=== PATIENT | female | born 2000 | race Caucasian/White ===

== ENCOUNTER 2024-07-28 13:55 | Inpatient (IN) ==
[2024-07-28] MEDS: LACTATED RINGER'S 1,000 ML IV ONE (15:00)
[2024-07-28] MEDS ORDERED: LIDOCAINE 1% LOCAL 20 ML VIAL INFIL PRN (16:37)
[2024-07-28] MEDS ORDERED: ACETAMINOPHEN 325 MG TAB PO PRN (16:37)
[2024-07-28] MEDS ORDERED: CALCIUM CARBONATE 500 MG CHEWABLE TAB PO PRN (16:37)
[2024-07-28] MEDS: BETAMETH SOD PHOS/ACETATE IA 6 MG/ML IM STA (16:49)
--- NOTE | 2024-07-28 17:03 | History & Physical Report ---
Date of Service July 28, 2024 Assessment & Plan (1) Supervision of normal first : Plan: IUP at 36 0/7 weeks in active labor- she made good cervical mold insert changer 2 hours (3/50/-2 to 4-5/100/-1) GBS obtained but willl start PCN prophylaxis diet controlled GDM - check glucose Q2H will also give dose of Celestone now because of late gestation she is not too painful yet- may consider epidural analgesia at some point anticipate vaginal History of Present Illness Primary Care Provider: Xiomara Painting MD Patient is a 23yo female EDC 08/25/24 who presents at 36 0/7 weeks with regular ctns since 10am. had increased slippery discharge for the past several days. started having pink discharge when she started to contract. complicated by diet controlled GDM. testing has been reassuring. last growth scan at 34 weeks showed EFW 98%tile. GBS status unknown. Allergies Allergy/AdvReac Type Severity Reaction Status Date / Time animal dander Allergy Intermediate Hives Verified 07/28/24 14:16 house dust Allergy Intermediate skin test Verified 07/28/24 14:16 positive pollen extracts Allergy Intermediate sinus Verified 07/28/24 14:16 congestion lactose AdvReac Intermediate lactose Verified 07/28/24 14:16 intolerant wheat Allergy Intermediate Celiac Uncoded 07/28/24 14:16 Disease Home Medications Medication Instructions Recorded Confirmed Type Aerochamber MV (inhalational #1 ea 09/04/19 07/16/24 Rx spacing device) albuterol sulfate 90 mcg/actuation 2 puffs inhalation Q6H PRN asthma 03/01/21 07/28/24 History aerosol inhaler attack venlafaxine 75 mg capsule,extended 75 mg PO QAM 03/01/21 07/28/24 History release 24 hr hydroxyzine HCl 10 mg tablet 10 mg PO DAILY PRN Anxiety #30 tabs 07/16/22 07/28/24 Rx 21-iron fu-folic acid 1 tab PO DAILY 02/05/24 07/28/24 History [ Complete] acetone (urine) test (Ketone Urine #50 ea 07/10/24 07/16/24 Rx Test strips) blood sugar diagnostic (OneTouch #150 ea 07/10/24 07/16/24 Rx Verio test strips) blood-glucose meter (OneTouch #1 ea 07/10/24 07/16/24 Rx Verio Reflect Meter) lancets 33 gauge (OneTouch Delica #150 ea 07/10/24 07/16/24 Rx Plus Lancet) Patient History Medical History Varicella vaccination Hyperlipidemia Celiac disease Pilonidal disease Allergic rhinitis Anxiety Exercise-induced asthma Loss of weight Underweight Asthma Celiac disease in pediatric patient Surgical History S/P surgical removal of pilonidal cyst (03/03/21) History of esophagogastroduodenoscopy (EGD) Family History Father No significant family history Mother Sinusitis Grandfather Type 1 diabetes mellitus Hyperlipidemia Grandmother Asthma Hypertension Allergies Cancer Brother Allergies Sister Allergies Aunt Myocardial infarction Denies family history of Ovarian cancer Prostate cancer Breast cancer Colorectal cancer Social History Smoking Status: Never smoker Second Hand Exposure: No; Do You Dip or Chew Tobacco: No; Hx Alcohol Use: No Hx Substance Use: No Preferred Language: Yakut Communication Ability: Effective Clinical Psychologist Licensed Required: No Beliefs That Will Affect Care: None marital status: Single marital status details: min Navarro(22) [phone] Current Living Situation: Family Current Living Situation Comment: Patient lives with parents and 2 sisters, no pets current occupational status: employed 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 other: 6- SISTERS, 1- BROTHER Feels Safe at Home: Yes Safety Concerns: Feels Safe At This Time Childhood Exposure to Second-Hand Smoke: No Diet Comment: Celiac Dental Care, Regularly: Yes Physical Activity Frequency: 3-4 Times per Week Seatbelt Use: always Sunscreen Use: Yes Do you think of yourself as: straight/heterosexual Assistive Devices: None Review of Systems All systems reviewed & are unremarkable except as noted in HPI & below Physical Exam Constitutional: WD/WN, vitals as above Psychiatric: A+Ox3, euthymic affect Genitourinary: Manual OB Exam: + cervical dilation (4-5 cm), + cervical effacement 100% and + station -1 bulging membranes on exam Results & Data Vital Signs (Past 12 Hours) Vital Signs Temp Pulse Resp BP 07/28/24 15:10 98.6 F 118 H 20 136/90 07/28/24 14:26 118 H 07/28/24 14:26 136/90 07/28/24 14:10 118 H 133/92 Code Status & VTE Plan VTE Prophylaxis Plan VTE Prophylaxis will be ordered: No Coding Level of Care Code 40319 INT INP/OBS CARE MIN Diagnoses Encounter for supervision of normal first in third trimester Z34.03 Trimester: third trimester (1) Supervision of normal first Trimester: third trimester Qualified Code(s): Z34.03 - Encounter for supervision of normal first , third trimester
[2024-07-28 17:10] LABS: Hematocrit (blood only) 32.2 % (37.0-47.0); Hemoglobin 10.3 g/dl (12.0-16.0); Mean Corpuscular Hemoglobin 23.1 pg (25.0-34.0); Mean Corpuscular Volume 72.2 fL (80.0-100.0); Mean Platelet Volume 10.4 fL (9.4-12.4); Platelet Count 252 K/uL (130-400); RDW Coefficient of Variation 14.7 % (11.5-14.5); RDW Standard Deviation 38.3 fL (36.4-46.3); Red Blood Count 4.46 M/uL (4.20-5.40); White Blood Count 15.15 K/ul (4.8-10.8)
[2024-07-28] MEDS: PENICILLIN GK 6 MU in DEXTROSE 5% 250 ML IV STA (17:28)
[2024-07-28] MEDS: LACTATED RINGER'S 1,000 ML IV PRN (17:40)
[2024-07-28] MEDS: PENICILLIN GK 3 MU in DEXTROSE 5% 100 ML IV PRN (20:36)
[2024-07-28] MEDS ORDERED: OXYTOCIN 30 UNITS/NSS 30 UNITS/500 ML BAG IV PRN (22:00)
--- NOTE | 2024-07-28 22:00 | Labor Progress Brief Note ---
Date of Service July 28, 2024 Subjective Reason For Note: Routine Evaluation contractions lasting longer but not more painful FHT's Category 1- ctns [id number] 2nd dose of PCN now finished cervix exam: 5cm/100/-1 AROM for clear fluid may need pitocin for augmentation Review of Systems All systems reviewed & are unremarkable except as noted in HPI & below Assessment & Plan Admission and Anticipated Discharge Date Admission Date: July 28, 2024 Results & Data Vital Signs (Past 12 Hours) Vital Signs Temp Pulse Resp BP 07/28/24 21:54 139 H 07/28/24 21:54 139/87 07/28/24 19:29 16 07/28/24 19:29 97.9 F 16 07/28/24 19:06 116 H 07/28/24 19:06 139/94 07/28/24 17:48 111 H 07/28/24 17:48 139/88 07/28/24 17:32 112 H 07/28/24 17:32 143/99 H 07/28/24 15:10 98.6 F 118 H 20 136/90 07/28/24 14:26 118 H 07/28/24 14:26 136/90 07/28/24 14:10 98.6 F 118 H 20 133/92 Coding Level of Care Code 00126 SUB INP/OBS CARE 05/16MIN
[2024-07-28] MEDS: BUPIVACAINE 0.25% PF 30 ML VIAL ONE (23:10)
[2024-07-28] MEDS: LIDOCAINE 2%/EPINEPHRINE 1:200,000 20 ML PF ONE (23:21)
--- NOTE | 2024-07-28 23:23 | Anesthesiology Consultation ---
Date of Service July 28, 2024 Assessment & Plan Chart Review Chart Review: Acceptable Risk for Labor Epidural Consults Requested none History Height/Weight Height: 5 ft 6 in Weight: 61.689 kg Allergies Allergy/AdvReac Type Severity Reaction Status Date / Time animal dander Allergy Intermediate Hives Verified 07/28/24 14:16 house dust Allergy Intermediate skin test Verified 07/28/24 14:16 positive pollen extracts Allergy Intermediate sinus Verified 07/28/24 14:16 congestion lactose AdvReac Intermediate lactose Verified 07/28/24 14:16 intolerant wheat Allergy Intermediate Celiac Uncoded 07/28/24 14:16 Disease Medications Home Medications Medication Instructions Recorded Confirmed Last Taken Aerochamber MV (inhalational #1 ea 09/04/19 07/16/24 Unknown spacing device) albuterol sulfate 90 mcg/actuation 2 puffs inhalation Q6H PRN asthma 03/01/21 07/28/24 Unknown aerosol inhaler attack venlafaxine 75 mg capsule,extended 75 mg PO QAM 03/01/21 07/28/24 07/28/24 08:00 release 24 hr hydroxyzine HCl 10 mg tablet 10 mg PO DAILY PRN Anxiety #30 tabs 07/16/22 07/28/24 06/24/24 19:00 21-iron fu-folic acid 1 tab PO DAILY 02/05/24 07/28/24 07/08/24 [ Complete] acetone (urine) test (Ketone Urine #50 ea 07/10/24 07/16/24 Unknown Test strips) blood sugar diagnostic (OneTouch #150 ea 07/10/24 07/16/24 Unknown Verio test strips) blood-glucose meter (OneTouch #1 ea 07/10/24 07/16/24 Unknown Verio Reflect Meter) lancets 33 gauge (OneTouch Delica #150 ea 07/10/24 07/16/24 Unknown Plus Lancet) Active Medications Generic Name Dose Route Start Last Admin Trade Name Freq PRN Reason Stop Dose Admin Penicillin G Potassium 3 mu/ 106 mls @ 100 mls/hr 07/28/24 19:37 07/28/24 21:40 Dextrose IV 08/07/24 19:36 Infused Q4H PRN Infusion GBS(+) Until Delivery Lactated Ringer's 1,000 mls @ 125 mls/hr 07/28/24 16:37 07/28/24 23:19 Lr IV 07/29/24 16:36 125 mls/hr .Q8H PRN Infusion L&D Protocol Protocol Past Medical History Medical History Varicella vaccination Hyperlipidemia Celiac disease Pilonidal disease Allergic rhinitis Anxiety Exercise-induced asthma Loss of weight Underweight Asthma Celiac disease in pediatric patient Past Family History Family History Father No significant family history Mother Sinusitis Grandfather Type 1 diabetes mellitus Hyperlipidemia Grandmother Asthma Hypertension Allergies Cancer Brother Allergies Sister Allergies Aunt Myocardial infarction Denies family history of Ovarian cancer Prostate cancer Breast cancer Colorectal cancer Past Surgical History Surgical History S/P surgical removal of pilonidal cyst (03/03/21) History of esophagogastroduodenoscopy (EGD) Social History Smoking Status: Never smoker Do You Dip or Chew Tobacco: No Hx Alcohol Use: No Hx Substance Use: No substance use type: does not use Physical Exam Vital Signs Last Vital Signs Temp 36.5 C 07/28/24 22:00 Pulse 131 H 07/28/24 23:22 Resp 16 07/28/24 22:00 BP 134/77 07/28/24 23:22 Pulse Ox 100 07/28/24 23:21 Testing Laboratory Results 07/28/24 16:55 07/28/24 07/28/24 07/28/24 21:58 19:17 17:08 POC Glucose 109 H 91 89
[2024-07-28] MEDS ORDERED: NALOXONE HCL 1 MG in SODIUM CHLORIDE 0.9% 1,000 ML IV PRN ×2 (23:27→23:37)
[2024-07-28] MEDS ORDERED: diphenhydrAMINE 50 MG/ML VIAL IV PRN ×2 (23:27→23:37)
[2024-07-28] MEDS ORDERED: NALOXONE HCL 0.4 MG/1 ML VIAL/CARP IV PRN ×2 (23:27→23:37)
[2024-07-28] MEDS ORDERED: ePHEDrine sulfate 50 MG/ML AMP IV PRN ×2 (23:27→23:37)
[2024-07-28] MEDS ORDERED: BUPIVACAINE 0.25% PF 30 ML VIAL EPI PRN ×2 (23:27→23:37)
[2024-07-28] MEDS ORDERED: fentaNYL citrate PF 100 MCG/2 ML VIAL EPI PRN ×2 (23:27→23:37)
[2024-07-28] MEDS ORDERED: fentANYL 2 MCG/ML BUPIVacaine 0.125%-NSS 100ML BAG EPI PRN ×2 (23:27→23:37)
[2024-07-28] MEDS ORDERED: NALBUPHINE HCL INJ 10 MG/ML AMP IV PRN ×2 (23:27→23:37)
[2024-07-28] MEDS ORDERED: LIDOCAINE 2% MPF LOCAL 5 ML VIAL EPI PRN ×2 (23:27→23:37)
[2024-07-28] MEDS ORDERED: ROPIVACAINE 0.5% PF 5 MG/ML 20 ML VIAL EPI PRN ×2 (23:27→23:37)
[2024-07-28] MEDS ORDERED: SODIUM CHLORIDE 0.9% PF INJ 10 ML VIAL EPI PRN ×2 (23:27→23:37)
[2024-07-28] MEDS: fentaNYL citrate PF 100 MCG/2 ML VIAL ONE (23:30)
[2024-07-28] MEDS: fentANYL 2 MCG/ML BUPIVacaine 0.125%-NSS 100ML BAG ONE (23:40)
[2024-07-29] MEDS: BUPIVACAINE 0.25% PF 30 ML VIAL EPI STA ×2 (01:13→01:15)
[2024-07-29] MEDS: SODIUM CHLORIDE 0.9% PF INJ 10 ML VIAL ONE (01:13)
[2024-07-29] MEDS: ePHEDrine sulfate 50 MG/ML AMP ONE (01:13)
[2024-07-29] MEDS: SODIUM CHLORIDE 0.9% PF INJ 10 ML VIAL EPI STA ×2 (01:14→01:15)
[2024-07-29] MEDS: LIDOCAINE 2%/EPINEPHRINE 1:200,000 20 ML PF EPI STA ×2 (01:14→01:15)
[2024-07-29] MEDS: fentaNYL citrate PF 100 MCG/2 ML VIAL EPI STA ×2 (01:14→01:15)
[2024-07-29] MEDS: OXYTOCIN 30 UNITS/NSS 30 UNITS/500 ML BAG IV PRN (02:38)
[2024-07-29] MEDS: miSOPROStoL 200 MCG TAB PR ONE (02:43)
[2024-07-29] MEDS ORDERED: HYDROCORTISONE ACETATE 25 MG SUPP PR PRN (03:12)
[2024-07-29] MEDS ORDERED: OXYTOCIN 30 UNITS/NSS 30 UNITS/500 ML BAG IV PRN (03:12)
[2024-07-29] MEDS ORDERED: bisacodyL 10 MG SUPP PR PRN (03:12)
[2024-07-29] MEDS ORDERED: DIPHTHER/TETAN/PERTUS Vaccine (Tdap, Adol/Adult) 0.5mL IM ONE (03:12)
--- NOTE | 2024-07-29 03:23 | Delivery Summary ---
Vaginal Delivery Summary Date of Service July 29, 2024 Vaginal Delivery Summary and 1st Degree LAC (vaginal) Patient is a 23-year-old 1 P0 female EDC of 08/25/2024 who presented at 36 and 1 sevenths weeks in labor. GBS status was unknown which she did receive adequate prophylaxis. After she received her second dose of penicillin, membranes were ruptured for clear fluid. She requested epidural analgesia which was effective. She progressed to full dilation and pushed effectively over intact perineum for delivery of a viable male . After the head was delivered the rest of the infant delivered with ease and was placed on the mother's abdomen for further attention and drying. After 1 minute, the cord was clamped and cut. After cord blood was obtained, the placenta was expressed intact with three-vessel cord. bleeding was controlled initially wit h dilute Pitocin and fundal massage. Bleeding continued to be more than normal, and after removing clot from the lower uterine segment, and giving 800 mcg of Cytotec rectally, the bleeding then slowed. A first-degree vaginal laceration was repaired with 3-0 chromic in usual fashion. QBL was 727 mL. Mother and infant were doing well after delivery[place] [facility] [place] Delivery Type Details: and 1st Degree LAC (vaginal)
--- NOTE | 2024-07-29 06:35 | Anesthesia Procedure Note ---
Date of Service July 29, 2024 Anesthesia Post Epidural Note Vital Signs Vital Signs: Temp Pulse Resp BP Pulse Ox O2 Del Method 37.0 C 109 H 16 142/94 H 100 Room Air 07/29/24 05:30 07/29/24 05:30 07/29/24 05:30 07/29/24 05:30 07/29/24 05:30 07/29/24 05:30 Notes Mental Status: alert / awake / arousable Nausea / Vomiting: adequately controlled Pain: adequately controlled Airway Patency, RR, SpO2: stable & adequate BP & HR: stable & adequate Hydration State: stable & adequate Neuraxial Anesthesia: was administered and sensory block is resolving Anesthetic Complications: no major complications apparent and Pt Satisfied with anesthetic care Epidural: Removed without complications and With tip intact
--- NOTE | 2024-07-29 06:39 | Communication Note ---
Date of Service: July 29, 2024 Pt had inadvertent dural puncture ("wet tap") w/ Touhy needle during labor epidural placement. Discussed w/ pt this morning regarding risk of spinal headache and treatment protocol. , Questions answered, Pt expressed understanding. She is asymptomatic this morning. Will f/u.
[2024-07-29] MEDS: miSOPROStoL 200 MCG TAB ONE (06:44)
--- NOTE | 2024-07-29 07:20 | Obstetrical Progress Note ---
Date of Service July 29, 2024 Assessment & Plan (1) Encounter for care and examination after delivery: satisfactory exam continue current care plan Subjective Ambulation: ambulating normally Voiding: no voiding problems Passing Gas:: Yes Diet Tolerance:: regular diet Lochia:: Moderate Feeding Type:: breast feeding minimal cramping Review of Systems All systems reviewed & are unremarkable except as noted in HPI & below Physical Exam Constitutional WD/WN, vitals as above Psychiatric A+Ox3, euthymic affect Genitourinary OB Exam Abdomen: + fundal height Fundus: + firm and + relation to umbilicus (at U) Results & Data Vital Signs (Past 12 Hours) Vital Signs Temp Pulse Pulse Resp BP BP Pulse Ox 07/29/24 05:30 98.6 F 109 H 16 142/94 H 100 07/29/24 04:51 121 H 143/86 H 07/29/24 04:39 113 H 136/80 07/29/24 04:24 109 H 139/94 07/29/24 04:09 116 H 135/93 07/29/24 03:54 112 H 140/88 07/29/24 03:39 111 H 136/83 07/29/24 03:09 117 H 142/91 H 07/29/24 02:58 119 H 92 07/29/24 02:56 119 H 100 07/29/24 02:54 112 H 134/84 07/29/24 02:51 112 H 100 07/29/24 02:46 120 H 100 07/29/24 02:41 120 H 100 07/29/24 02:39 113 H 128/74 07/29/24 02:36 116 H 100 07/29/24 02:31 127 H 100 07/29/24 02:29 148 H 94 07/29/24 02:26 135 H 100 07/29/24 02:21 157 H 100 07/29/24 02:17 154 H 90 07/29/24 02:16 147 H 100 07/29/24 02:11 171 H 100 07/29/24 02:07 166 H 90 07/29/24 02:06 165 H 100 07/29/24 02:04 16 07/29/24 02:04 16 07/29/24 02:02 151 H 92 07/29/24 02:01 150 H 96 07/29/24 01:56 100 07/29/24 01:56 155 H 07/29/24 01:56 150 H 125/75 07/29/24 01:52 156 H 90 07/29/24 01:51 153 H 100 07/29/24 01:46 134 H 100 07/29/24 01:41 105 H 100 07/29/24 01:39 92 H 117/72 07/29/24 01:36 91 H 99 07/29/24 01:31 90 97 07/29/24 01:30 16 07/29/24 01:30 16 07/29/24 01:26 89 98 07/29/24 01:24 93 H 125/69 07/29/24 01:21 92 H 99 07/29/24 01:16 97 H 100 07/29/24 01:11 90 99 07/29/24 01:09 89 119/68 07/29/24 01:06 92 H 99 07/29/24 01:01 96 H 100 07/29/24 01:00 16 07/29/24 01:00 16 07/29/24 00:56 107 H 100 07/29/24 00:55 107 H 131/75 07/29/24 00:51 106 H 100 07/29/24 00:46 113 H 100 07/29/24 00:42 122 H 88 L 07/29/24 00:41 128 H 100 07/29/24 00:40 131 H 128/79 07/29/24 00:36 117 H 100 07/29/24 00:31 121 H 100 07/29/24 00:30 16 07/29/24 00:30 16 07/29/24 00:26 145 H 90 07/29/24 00:21 120 H 100 07/29/24 00:19 93 07/29/24 00:19 117 H 07/29/24 00:19 127 H 119/62 07/29/24 00:16 130 H 100 07/29/24 00:14 122 H 113/64 07/29/24 00:11 133 H 100 07/29/24 00:09 129 H 121/64 07/29/24 00:06 129 H 100 07/29/24 00:04 90 07/29/24 00:04 127 H 07/29/24 00:04 133 H 120/65 07/29/24 00:01 129 H 99 07/29/24 00:00 127 H 16 125/57 L 07/28/24 23:56 100 07/28/24 23:56 125 H 07/28/24 23:54 129 H 07/28/24 23:54 125/71 07/28/24 23:51 100 07/28/24 23:51 136 H 07/28/24 23:49 130 H 07/28/24 23:49 133/61 07/28/24 23:46 100 07/28/24 23:46 125 H 07/28/24 23:45 16 07/28/24 23:45 16 07/28/24 23:45 130 H 07/28/24 23:45 113/66 07/28/24 23:41 100 07/28/24 23:41 126 H 07/28/24 23:39 126 H 07/28/24 23:39 127/69 07/28/24 23:36 100 07/28/24 23:36 124 H 07/28/24 23:35 125 H 07/28/24 23:35 125/71 07/28/24 23:34 121 H 07/28/24 23:34 116/62 07/28/24 23:32 127 H 07/28/24 23:32 123/65 07/28/24 23:31 100 07/28/24 23:31 130 H 07/28/24 23:30 16 07/28/24 23:30 98.1 F 16 07/28/24 23:28 122 H 07/28/24 23:28 127/71 07/28/24 23:26 100 07/28/24 23:26 134 H 07/28/24 23:26 130/73 07/28/24 23:24 130 H 07/28/24 23:24 133/79 07/28/24 23:22 131 H 07/28/24 23:22 134/77 07/28/24 23:21 100 07/28/24 23:21 131 H 07/28/24 23:20 144 H 07/28/24 23:20 136/80 07/28/24 23:18 142 H 07/28/24 23:18 143/82 H 07/28/24 23:16 100 07/28/24 23:16 137 H 07/28/24 23:16 144 H 07/28/24 23:16 133/76 07/28/24 23:14 144 H 07/28/24 23:14 135/80 07/28/24 23:12 142 H 07/28/24 23:12 135/78 07/28/24 23:11 100 07/28/24 23:11 137 H 07/28/24 23:10 134 H 07/28/24 23:10 127/71 07/28/24 23:06 100 07/28/24 23:06 122 H 07/28/24 23:06 122 H 07/28/24 23:06 135/87 07/28/24 23:01 100 07/28/24 23:01 145 H 07/28/24 22:56 100 07/28/24 22:56 148 H 07/28/24 22:52 78 L 07/28/24 22:52 147 H 07/28/24 22:51 100 07/28/24 22:51 149 H 07/28/24 22:46 98 07/28/24 22:46 164 H 07/28/24 22:00 16 07/28/24 22:00 97.7 F 16 07/28/24 21:54 139 H 07/28/24 21:54 139/87 07/28/24 19:29 16 07/28/24 19:29 97.9 F 16 O2 Del Method 07/29/24 05:30 Room Air 07/29/24 04:51 07/29/24 04:39 07/29/24 04:24 07/29/24 04:09 07/29/24 03:54 07/29/24 03:39 07/29/24 03:09 07/29/24 02:58 07/29/24 02:56 07/29/24 02:54 07/29/24 02:51 07/29/24 02:46 07/29/24 02:41 07/29/24 02:39 07/29/24 02:36 07/29/24 02:31 07/29/24 02:29 07/29/24 02:26 07/29/24 02:21 07/29/24 02:17 07/29/24 02:16 07/29/24 02:11 07/29/24 02:07 07/29/24 02:06 07/29/24 02:04 07/29/24 02:04 07/29/24 02:02 07/29/24 02:01 07/29/24 01:56 07/29/24 01:56 07/29/24 01:56 07/29/24 01:52 07/29/24 01:51 07/29/24 01:46 07/29/24 01:41 07/29/24 01:39 07/29/24 01:36 07/29/24 01:31 07/29/24 01:30 07/29/24 01:30 07/29/24 01:26 07/29/24 01:24 07/29/24 01:21 07/29/24 01:16 07/29/24 01:11 07/29/24 01:09 07/29/24 01:06 07/29/24 01:01 07/29/24 01:00 07/29/24 01:00 07/29/24 00:56 07/29/24 00:55 07/29/24 00:51 07/29/24 00:46 07/29/24 00:42 07/29/24 00:41 07/29/24 00:40 07/29/24 00:36 07/29/24 00:31 07/29/24 00:30 07/29/24 00:30 07/29/24 00:26 07/29/24 00:21 07/29/24 00:19 07/29/24 00:19 07/29/24 00:19 07/29/24 00:16 07/29/24 00:14 07/29/24 00:11 07/29/24 00:09 07/29/24 00:06 07/29/24 00:04 07/29/24 00:04 07/29/24 00:04 07/29/24 00:01 07/29/24 00:00 07/28/24 23:56 07/28/24 23:56 07/28/24 23:54 07/28/24 23:54 07/28/24 23:51 07/28/24 23:51 07/28/24 23:49 07/28/24 23:49 07/28/24 23:46 07/28/24 23:46 07/28/24 23:45 07/28/24 23:45 07/28/24 23:45 07/28/24 23:45 07/28/24 23:41 07/28/24 23:41 07/28/24 23:39 07/28/24 23:39 07/28/24 23:36 07/28/24 23:36 07/28/24 23:35 07/28/24 23:35 07/28/24 23:34 07/28/24 23:34 07/28/24 23:32 07/28/24 23:32 07/28/24 23:31 07/28/24 23:31 07/28/24 23:30 07/28/24 23:30 07/28/24 23:28 07/28/24 23:28 07/28/24 23:26 07/28/24 23:26 07/28/24 23:26 07/28/24 23:24 07/28/24 23:24 07/28/24 23:22 07/28/24 23:22 07/28/24 23:21 07/28/24 23:21 07/28/24 23:20 07/28/24 23:20 07/28/24 23:18 07/28/24 23:18 07/28/24 23:16 07/28/24 23:16 07/28/24 23:16 07/28/24 23:16 07/28/24 23:14 07/28/24 23:14 07/28/24 23:12 07/28/24 23:12 07/28/24 23:11 07/28/24 23:11 07/28/24 23:10 07/28/24 23:10 07/28/24 23:06 07/28/24 23:06 07/28/24 23:06 07/28/24 23:06 07/28/24 23:01 07/28/24 23:01 07/28/24 22:56 07/28/24 22:56 07/28/24 22:52 07/28/24 22:52 07/28/24 22:51 07/28/24 22:51 07/28/24 22:46 07/28/24 22:46 07/28/24 22:00 07/28/24 22:00 07/28/24 21:54 07/28/24 21:54 07/28/24 19:29 07/28/24 19:29
[2024-07-29] MEDS: BENZOCAINE 20% SPRY 85 APPLN/85 GM CAN EXT PRN (07:30)
[2024-07-29] MEDS: IBUPROFEN 600 MG TAB PO PRN (07:32)
[2024-07-29] MEDS: PRENATAL VITAMIN 1 TAB PO SCH (07:32)
[2024-07-29] MEDS: DOCUSATE SODIUM 100 MG CAP PO SCH (07:32)
[2024-07-29] MEDS: VENLAFAXINE HCL XR 75 MG CAPXR PO SCH (09:33)
[2024-07-29] MEDS: ACETAMINOPHEN 325 MG TAB PO PRN (15:34)
[2024-07-30] MEDS: oxyCODONE/ACETAMINOPHEN 5mg/325mg TAB PO PRN (00:39)
--- NOTE | 2024-07-30 06:07 | Obstetrical Progress Note ---
Date of Service July 30, 2024 Assessment & Plan (1) Encounter for care and examination after delivery: (2) Gestational diabetes mellitus (GDM) affecting , antepartum: Plan Pt is 23 yo post- day 1 s/p at 36w2d. complicated by GDM and GBS unknown at delivery. S/p antibiotics and predelivery steroids. S/p epidural with wet tap. Pt having elevated BPs, headaches, mild vision changes and Hbg is 7.8. - Ordered CMP, pending results - Monitor BPs - Consider consult with anesthesiology for procedure to repair wet tap epidural if headaches continue - Monitor for symptoms of anemia - Encourage ambulation as tolerated and breast feeding - Pain control with Tylenol and ibuprofen - Possible discharge 07/31 Admission and Anticipated Discharge Date Admission Date: July 28, 2024 Supervising Physician Co-Signing Physician Notes Resident Physician Supervision Note: I interviewed and examined the patient. Discussed with Dr. Roach and agree with findings and plan as documented in the note. Any exceptions or clarifications are listed here: PP1 s/p at 36 wks. Had wet tap and HAs yesterday, improved this am so far. Mild range bps seen yesterday that per pt, nursing thought r/t cuff size as normalized with appropriate cuff. Exam benign and wnl. Will get cmp w/ cbc, pt notes BYNUM is improved and quality is assoc with position so suspect r/t wet tap than PIH. Will await labs. If BYNUM not managed w/ meds, would discuss w/ anesthesia Documented By: Ofe Lynch MD Subjective Pt is 23 yo post- day 1 s/p at 36w2d. complicated by GDM and GBS unknown at delivery Ambulation:In room Voiding:voiding normally Passing gas: yes BM: Small BM on 07/29 Diet tolerance:regular diet Lochia:bloody, no clots Feeding type: breast Current pain level: 0 /10 Resting comfortably this morning in NAD. Noted severe BYNUM's yesterday that occurred with sitting up, better with oxycodone and laying down. She noted mild blurry vision in right eye with headaches. Pt reports she spoke with anesthesio logist who told her that her headaches maybe related to epidural complication. She notes her head aches are better this morning. Pt also noted to have 5 reading of elevated BP ranging from 143/86 to 155/98. Pt states BPs improved when cuff was change to smaller size. Denies CP, SOB, N/V/D, LE pain/swelling. Review of Systems Review of Systems: As per HPI Physical Exam Constitutional: WD/WN, vitals as above Respiratory: normal respiratory effort, lungs clear to auscultation Cardiovascular: RRR, no murmur, no edema Gastrointestinal (Abdomen): normal bowel sounds, soft, nontender, no hepatosplenomegaly Uterine fundus firm and at 1-2 cm below level of umbilicus Neurologic: PERRL, EOMI, accommodation nl, no face palsy, no dysarthria Moving all 4 extremities on command Psychiatric: A+Ox3, euthymic affect Results & Data Vital Signs (Past 12 Hours) Vital Signs Temp Pulse Resp BP Pulse Ox O2 Del Method 07/30/24 03:10 36.6 C 88 16 116/89 98 Room Air 07/30/24 00:15 36.8 C 84 16 138/91 99 Room Air 07/29/24 21:00 36.8 C 84 18 137/91 100 Room Air Laboratory Results Abnormal lab results 07/30/24 Range/Units 05:45 WBC 14.56 H (4.8-10.8) K/ul RBC 3.42 L (4.20-5.40) M/uL Hgb 7.8 L (12.0-16.0) g/dl Hct 25.3 L (37.0-47.0) % MCV 74.0 L (80.0-100.0) fL MCH 22.8 L (25.0-34.0) pg MCHC 30.8 L (32.0-36.0) g/dL RDW Coeff of Zehra 15.2 H (11.5-14.5) % Resident Activity Tracking Resident Involvement: Resident Care Provided Care Provided: Adult Hospital Medicine
[2024-07-30 06:46] LABS: Hematocrit (blood only) 25.3 % (37.0-47.0); Hemoglobin 7.8 g/dl (12.0-16.0); Mean Corpuscular Hemoglobin 22.8 pg (25.0-34.0); Mean Corpuscular Hgb Conc 30.8 g/dL (32.0-36.0); Mean Platelet Volume 10.6 fL (9.4-12.4); Platelet Count 235 K/uL (130-400); RDW Coefficient of Variation 15.2 % (11.5-14.5); RDW Standard Deviation 40.4 fL (36.4-46.3); Red Blood Count 3.42 M/uL (4.20-5.40); White Blood Count 14.56 K/ul (4.8-10.8)
[2024-07-30 07:59] LABS: Albumin Level 2.8 gm/dl (3.4-5.0); BUN Creatinine Ratio 14.1 (10-20); Bilirubin,Total 0.3 mg/dl (0.2-1.0); Calcium 8.4 mg/dl (8.6-10.3); Creatinine Clr Calc Pharmacy 117.3 ml/min; Globulin 2.9 gm/dl (2.5-4.0); Potassium 4.3 mmol/L (3.5-5.1); Total Protein 5.7 gm/dl (6.0-8.3)
[2024-07-30] MEDS: FERROUS SULFATE 325 MG TAB PO SCH (10:13)
--- NOTE | 2024-07-30 14:55 | Communication Note ---
Date of Service: July 30, 2024 Follow up on patient after inadvertent dural puncture. She had a positional headache yesterday and still does have some symptoms remaining today but they are now mild and improving. I spent time discussing post dural puncture headache, explaining the risks and benefits of epidural blood patch, and answering any questions. She would like to differ blood patch for now, and is aware that if her symptoms worsen, we could certainly provide this treatment in the future.
[2024-07-30] MEDS: bisacodyL 5 MG TABEC PO SCH (22:00)
--- NOTE | 2024-07-31 06:00 | Obstetrical Progress Note ---
Date of Service July 31, 2024 Assessment & Plan (1) Encounter for care and examination after delivery: (2) Gestational diabetes mellitus (GDM) affecting , antepartum: Plan Pt is 23 yo post- day 2 s/p at 36w2d. complicated by GDM and GBS unknown at delivery. S/p antibiotics and predelivery steroids. S/p epidural with wet tap. Pt had elevated BPs and headaches. Hbg this morning is 8.2. CMP from 07/30 showed normal liver enzymes and kidney function. - Monitor BPs - Monitor for symptoms of anemia - Encourage ambulation as tolerated and breast feeding - Pain control with Tylenol and ibuprofen - Discharge today Admission and Anticipated Discharge Date Admission Date: July 28, 2024 Subjective Pt is 23 yo post- day 2 s/p at 36w2d. complicated by GDM and GBS unknown at delivery. Ambulation:In room Voiding:voiding normally Passing gas: yes BM: yes Diet tolerance:regular diet Lochia:bloody, no clots Feeding type: breast Current pain level: 3 /10. 5-6/10 with headaches Resting comfortably this morning in NAD. Noted severe BYNUM's have decreased in frequency. They have been controlled with tylenol and ibuprofen, took one oxycodone in evening to sleep. Denies CP, SOB, N/V/D, LE pain/swelling. Review of Systems Review of Systems: As per HPI Physical Exam Constitutional: WD/WN, vitals as above Respiratory: normal respiratory effort, lungs clear to auscultation Cardiovascular: RRR, no murmur, no edema Gastrointestinal (Abdomen): normal bowel sounds, soft, nontender, no hepatosplenomegaly Uterine fundus is firm and at 2 cm below level of umbilicus Neurologic: PERRL, EOMI, accommodation nl, no face palsy, no dysarthria Psychiatric: A+Ox3, euthymic affect Results & Data Vital Signs (Past 12 Hours) Vital Signs Temp Pulse Resp BP Pulse Ox O2 Del Method 07/30/24 23:55 37.1 C 86 18 133/86 98 Room Air 07/30/24 23:03 37.2 C 83 18 133/93 98 Room Air 07/30/24 19:55 36.9 C 85 18 127/85 Room Air 07/30/24 19:47 36.8 C 83 16 145/86 H 100 Room Air Resident Activity Tracking Resident Involvement: Resident Care Provided Care Provided: OB Delivery
[2024-07-31 06:45] LABS: Hematocrit (blood only) 26.5 % (37.0-47.0); Hemoglobin 8.2 g/dl (12.0-16.0)
[2024-07-31 10:22] LABS: Hematocrit (blood only) 26.1 % (37.0-47.0); Hemoglobin 8.1 g/dl (12.0-16.0); Mean Corpuscular Hemoglobin 22.9 pg (25.0-34.0); Mean Corpuscular Volume 73.9 fL (80.0-100.0); Mean Platelet Volume 10.4 fL (9.4-12.4); Platelet Count 250 K/uL (130-400); RDW Coefficient of Variation 15.5 % (11.5-14.5); RDW Standard Deviation 40.7 fL (36.4-46.3); Red Blood Count 3.53 M/uL (4.20-5.40); White Blood Count 11.38 K/ul (4.8-10.8)
[2024-07-31 10:53] LABS: Albumin Level 2.8 gm/dl (3.4-5.0); BUN Creatinine Ratio 11.6 (10-20); Bilirubin,Total 0.4 mg/dl (0.2-1.0); Calcium 8.5 mg/dl (8.6-10.3); Creatinine Clr Calc Pharmacy 120.7 ml/min; Globulin 2.8 gm/dl (2.5-4.0); Potassium 3.9 mmol/L (3.5-5.1); Total Protein 5.6 gm/dl (6.0-8.3)
[2024-07-31] MEDS: NIFEdipine EXTENDED REL 30 MG TABCR PO SCH (11:01)
--- NOTE | 2024-07-31 11:34 | Communication Note ---
Date of Service: July 31, 2024 Patient seen and evaluated after inadvertent dural puncture 07/28. Patient states headache is improving with conservative tx. No neck pain, tinnitus, visual changes. Discussed epidural blood patch with patient however at this time, patient feels that her symptoms are improving and wants to proceed with conservative tx. Patient is going to be treated for high blood pressure. Anesthesia is available for further consultation as needed.
--- NOTE | 2024-07-31 16:28 | Communication Note ---
Date of Service: July 31, 2024 Discussed with RN. BP still borderline HTN at 138/91, but has only had one dose of procardia 30. BYNUM was gone earlier today, and has since come back. Nurse confirms BYNUM is mild enough that patient did not want blood patch, and is definitely still positional, as it improves with laying down and worsens with upright position. Given labs normal, and BYNUM which is both positional and occurring in the setting of known dural puncture, I will continue to manage this as gHTN co-occurring with post dural puncture BYNUM, and not preeclampsia with severe features. Overlap and diagnostic lack of clarity here does exist and will continue to watch closely.
--- NOTE | 2024-07-31 20:08 | Communication Note ---
Date of Service: July 31, 2024 asked to see patient again this evening. Patient states head pain has returned and is worse. Given patients waxing and waning symptoms over past two days, r ecommended epidural blood patch to patient. Patient agreeable and consented to procedure.
[2024-07-31 21:24] VITALS: O2SAT 98
--- NOTE | 2024-07-31 21:35 | Anesthesia Procedure Note ---
Anesthesia Procedure Note Epidural Blood Patch Procedure Note Date of procedure: 07/31/24 Consent: Risk / Benefits Reviewed With: PT / POA / Parent / Guardian, Informed Consent Obtained and All Questions Answered Risks include: Failure of technique, Back pain, Infection, Bleeding, Nerve injury and Dural puncture Time out completed: Yes Premedication: None Position: Sitting Surgical Prep: Hand hygeine: Alcohol based hand rub Equipment/Supplies: Cap, Mask, Sterile gloves, Sterile drapes and Sterile procedures used Skin prep: Chloraprep Local medication: 1% Lidocaine (ml) (3) Venous access site: Left antecubital vein Site: Midline Attempts: 1 Post-Procedure: Pt hemodynamically stable, Pt tolerates well and No complications
[2024-08-01 04:19] VITALS: RESP 18
--- NOTE | 2024-08-01 06:21 | Obstetrical Progress Note ---
Date of Service August 01, 2024 Assessment & Plan (1) Encounter for care and examination after delivery: (2) Gestational diabetes mellitus (GDM) affecting , antepartum: Plan Pt is 23 yo post- day 2 s/p at 36w2d. complicated by GDM and GBS unknown at delivery. S/p antibiotics and predelivery steroids. S/p epidural with wet tap. Pt had elevated BPs and headaches. Repeat CMP from 07/31 showed normal liver enzymes and kidney function. Started Procardia on 07/31. BP's improved. - Continue Procardia 30mg qam - Monitor BPs - Monitor for symptoms of anemia - Encourage ambulation as tolerated and breast feeding - Pain control with Tylenol and ibuprofen - Discharge today Admission and Anticipated Discharge Date Admission Date: July 28, 2024 Supervising Physician Co-Signing Physician Notes Resident Physician Supervision Note: I interviewed and examined the patient. Discussed with Dr. Roach and agree with findings and plan as documented in the note. Any exceptions or clarifications are listed here: BP normalized now with procardia and BYNUM resolved with blood patch. OK for DC home on procardia with 1wk BP follow up visit. Documented By: Madeline Puente MD, FACOG Subjective Pt is 23 yo post- day 3 s/p at 36w2d. complicated by GDM and GBS unknown at delivery. Noted elevated BP's yesterday and started on Procardia. Ambulation:In room Voiding:voiding normally Passing gas: yes BM: yes Diet tolerance:regular diet Lochia:bloody, no clots Feeding type: breast Current pain level: 3 /10. 5-6/10 with headaches Resting comfortably this morning in NAD. Noted severe BYNUM's have decreased in frequency. They have been controlled with tylenol and ibuprofen, took one oxycodone in evening to sleep. Denies CP, SOB, N/V/D, LE pain/swelling. Review of Systems Review of Systems: As per HPI Physical Exam Constitutional: WD/WN, vitals as above Respiratory: normal respiratory effort, lungs clear to auscultation Cardiovascular: RRR, no murmur, no edema Gastrointestinal (Abdomen): normal bowel sounds, soft, nontender, no hepatosplenomegaly Uterine fundus is firm and 2 cm below level of umbilicus Neurologic: PERRL, EOMI, accommodation nl, no face palsy, no dysarthria Psychiatric: A+Ox3, euthymic affect Results & Data Vital Signs (Past 12 Hours) Vital Signs Temp Pulse Resp BP Pulse Ox O2 Del Method 08/01/24 03:35 36.8 C 88 18 128/81 98 Room Air 07/31/24 23:10 37.2 C 82 16 131/85 98 Room Air 07/31/24 19:10 37.2 C 82 16 138/88 98 Room Air 07/31/24 18:45 135/90 Resident Activity Tracking Resident Involvement: Resident Care Provided Care Provided: OB Delivery
[2024-08-01 08:25] VITALS: BP 137/90; PULSE 84; TEMP 97.3
== END 2024-08-01 10:30 | disposition home or self-care (01) | DRG 806 ==
LOC: OPB 13:55 → 4S1 13:56 → 4E2 07-29 05:23